=== PATIENT | female | born 1990 | race Caucasian/White ===

== ENCOUNTER 2017-01-21 09:27 | Inpatient (IN) | payer OTHER ==
[2017-01-21 09:33] VITALS: BMI 50.9
[2017-01-21] MEDS ORDERED: ONDANSETRON 4 MG/2 ML VIAL IVPUSH ONE (10:04)
[2017-01-21] MEDS ORDERED: FAMOTIDINE 20 MG/50 ML IVPB 20 MG/50 ML MG IVPB ONE ×3 (10:04→20:05)
--- NOTE | 2017-01-21 10:09 | PDOC ---
History of Present Illness - General History Source: Patient Exam Limitations: No Limitations - History of Present Illness Initial Comments: 01/21/17 11:58 The patient is a 26 year old female, with a significant past medical history of lap band 7yrs ago, who presents to the emergency department with abdominal pain for a few days, worse last night. She notes having severe pain in the epigastric area a/w nausea but no vomiting. She ranks her pain a 8/10 in pain intensity. She denies recent fevers, chills, headache or dizziness. She denies recent dysuria, frequency, urgency or hematuria. She denies recent chest pain or shortness of breath. Pt spoke with Dr. Preciado who advised her to come to the ED. Allergies: NKA Past surgical history: None reported. Social history: Nonsmoker. Denies EtOH use and recreational drug use. Primary Care Physician: <Chico Walter - Last Filed: 01/21/17 11:58> <Nicole Savage - Last Filed: 01/21/17 12:06> - General Chief Complaint: Pain Stated Complaint: ABD PAIN Time Seen by Provider: 01/21/17 09:37 Past History <Chico Walter - Last Filed: 01/21/17 11:58> - Past Medical History COPD: No GI Disorders: (LAP BAND) Other medical history: OBESITY - Surgical History Abdominal Surgery: Yes (LAP BAND) - Suicide/Smoking/Psychosocial Hx Smoking History: Current every day smoker Number of Cigarettes Smoked Daily: 3 Information on smoking cessation initiated: Yes 'Breaking Loose' booklet given: 01/21/17 Hx Alcohol Use: No Drug/Substance Use Hx: No Substance Use Type: None <Nicole Savage - Last Filed: 01/21/17 12:06> - Past Medical History Allergies/Adverse Reactions: Allergies Allergy/AdvReac Type Severity Reaction Status Date / Time No Known Allergies Allergy Verified 01/21/17 09:33 Home Medications: Ambulatory Orders NK [No Known Home Medication] 01/21/17 Review of Systems - Review of Systems Able to Perform ROS?: Yes Comments:: 01/21/17 11:58 GENERAL/CONSTITUTIONAL: No fever or chills. No weakness. HEAD, EYES, EARS, NOSE AND THROAT: No change in vision. No ear pain or discharge. No sore throat. GASTROINTESTINAL: +abdominal pain, nausea, no vomiting No diarrhea or constipation. GENITOURINARY: No dysuria, frequency, or change in urination. CARDIOVASCULAR: No chest pain or shortness of breath. RESPIRATORY: No cough, wheezing, or hemoptysis. MUSCULOSKELETAL: No joint or muscle swelling or pain. No neck or back pain. SKIN: No rash NEUROLOGIC: No headache, vertigo, loss of consciousness, or change in strength/ sensation. ENDOCRINE: No increased thirst. No abnormal weight change. HEMATOLOGIC/LYMPHATIC: No anemia, easy bleeding, or history of blood clots. ALLERGIC/IMMUNOLOGIC: No hives or skin allergy. <Chico Walter - Last Filed: 01/21/17 11:58> *Physical Exam - Vital Signs Last Vital Signs Temp Pulse Resp BP Pulse Ox 97.7 F 79 18 138/92 100 01/21/17 09:28 01/21/17 09:28 01/21/17 09:28 01/21/17 09:28 01/21/17 09:28 - Physical Exam Comments: 01/21/17 11:58 GENERAL: Awake, alert, and fully oriented, in no acute distress. HEAD: No signs of trauma EYES: PERRLA, EOMI, sclera anicteric, conjunctiva clear ENT: Auricles normal inspection, hearing grossly normal, nares patent, oropharynx clear without exudates. Moist mucosa NECK: Normal ROM, supple, no lymphadenopathy, JVD, or masses LUNGS: Breath sounds equal, clear to auscultation bilaterally. No wheezes, and no crackles HEART: Regular rate and rhythm, normal S1 and S2, no murmurs, rubs or gallops ABDOMEN: Epigastric tenderness to palpation with guarding. Soft. No rebound. No masses EXTREMITIES: Normal range of motion, no edema. No clubbing or cyanosis. No cords , erythema, or tenderness BACK: No midline spinal tenderness in cervical/thoracic/lumbar region NEUROLOGICAL: Normal speech, cranial nerves intact, negative pronator drift, 5/ 5 strength in all 4 extremities, normal sensation to light touch in all 4 extremities, normal cerebellar exam, normal gait, normal reflexes and tone SKIN: Warm, Dry, normal turgor, no rashes or lesions noted <Chico Walter - Last Filed: 01/21/17 11:58> - Vital Signs Last Vital Signs Temp Pulse Resp BP Pulse Ox 97.7 F 79 18 138/92 100 01/21/17 09:28 01/21/17 09:28 01/21/17 09:28 01/21/17 09:28 01/21/17 09:28 <Nicole Savage - Last Filed: 01/21/17 12:06> Heart Score/ECG Review #1 01/21/17 12:06 Twelve-lead EKG was performed and reviewed by me. Normal sinus rhythm, rate 66. + Sinus arrhythmia. No ST elevations. <Nicole Savage - Last Filed: 01/21/17 12:06> ED Treatment Course - LABORATORY CBC & Chemistry Diagram: 01/21/17 10:30 01/21/17 10:30 - ADDITIONAL ORDERS Additional order review: Laboratory Results 01/21/17 10:00 Urine Color Yellow Urine Appearance Slcloudy Urine pH 5.0 Ur Specific [place] 1.021 Urine Protein Negative Urine Glucose (UA) Negative Urine Ketones Negative Urine Blood 2+ H Urine Nitrite Negative Urine Bilirubin Negative Urine Urobilinogen Negative Urine HCG, Qual Negative 01/21/17 10:30 RBC 4.24 MCV 86.6 MCHC 33.5 RDW 14.4 MPV 8.3 Neutrophils % 59.6 Lymphocytes % 26.4 Monocytes % 7.1 Eosinophils % 6.4 H Basophils % 0.5 - Medications Given in the ED: ED Medications Discontinued Medications Generic Name Dose Route Start Last Admin Trade Name Freq PRN Reason Stop Dose Admin Famotidine/Sodium Chloride 20 mg in 50 mls @ 100 mls/hr 01/21/17 10:04 10:47 Pepcid 20 Mg Premixed Ivpb - IVPB 01/21/17 10:33 100 mls/hr ONCE ONE Administration Ondansetron HCl 4 mg 01/21/17 10:04 01/21/17 10:47 Zofran Injection IVPUSH 01/21/17 10:05 4 mg ONCE ONE Administration <Chico Walter - Last Filed: 01/21/17 11:58> - LABORATORY CBC & Chemistry Diagram: 01/21/17 10:30 01/21/17 10:30 <Nicole Savage - Last Filed: 01/21/17 12:06> Medical Decision Making - Medical Decision Making 01/21/17 10:05 26-year-old female with a history of LAP-BAND surgery presents with 3 days of epigastric abdominal pain that became worse last night. The patient called her surgeon Dr. Preciado who recommended she presents to the emergency department. Vitals are within normal limits. Exam with epigastric tenderness to palpation. Concern for LAP-BAND migration versus erosion vs infection. Plan: -NPO -UPT -labs -pain control/antiemetics -imaging as per Dr. Preciado 01/21/17 10:[address] Preciado, the patient's will be placed on the OR schedule for lap band removal later today. Patient is NPO, maintenance fluids ordered. Patient has been admitted to Dr. Preciado. Case discussed in detail with admitting physician including history, physical exam and ancillary studies. Admitting physician has assumed care for the patient, will follow all pending diagnostics and will complete the evaluation and treatment. <Nicole Savage - Last Filed: 01/21/17 12:06> *DC/Admit/Observation/Transfer - Attestations Scribe Attestion: 01/21/17 10:56 Documentation prepared by Chico Walter, acting as biomedical engineering internship for Nicole Savage MD. <Chico Walter - Last Filed: 01/21/17 11:58> - Discharge Dispostion Admit: Yes - Attestations Physician Attestion: 01/21/17 10:42 I, Dr. Nicole Savage MD, attest that this document has been prepared under my direction and personally reviewed by me in its entirety. I further attest, that it accurately reflects all work, treatment, procedures and medical decision -making performed by me. <Nicole Savage - Last Filed: 01/21/17 12:06> Diagnosis at time of Disposition: Abdominal pain - Discharge Dispostion Condition at time of disposition: Stable
[2017-01-21 10:23] LABS: URINE APPEARANCE SLCLOUDY; URINE BILIRUBIN NEGATIVE (NEGATIVE); URINE BLOOD 2+ (NEGATIVE); URINE COLOR YELLOW; URINE GLUCOSE (UA) NEGATIVE (NEGATIVE); URINE KETONE NEGATIVE (NEGATIVE); URINE NITRITE NEGATIVE (NEGATIVE); URINE PROTEIN NEGATIVE (NEGATIVE); URINE UROBILINOGEN NEGATIVE mg/dL (0.2-1.0)
[2017-01-21 10:35] LABS: BASOPHIL 0.5 % (0-2.0); EOSINOPHIL 6.4 % (0-4.5); MCHC 33.5 g/dl (32.0-36.0); MEAN CELL VOLUME 86.6 fl (80-96); MEAN PLT VOLUME 8.3 fl (7.5-11.1); NEUTROPHILS 59.6 % (42.8-82.8); PLATELET COUNT 263 K/MM3 (134-434); RDW 14.4 % (11.6-15.6); WHITE BLOOD COUNT 8.2 K/mm3 (4.0-10.0)
[2017-01-21] MEDS ORDERED: ONDANSETRON 4 MG/2 ML VIAL ONE (10:36)
[2017-01-21] MEDS ORDERED: SODIUM CHLORIDE 1,000 ML IV SCH ×2 (10:45→13:00)
[2017-01-21 11:03] LABS: URINE BACTERIA RARE /hpf (NONE SEEN); URINE MUCUS RARE; URINE RBC 2 /hpf (0-3); URINE WBC 1 /hpf (3-5)
[2017-01-21 11:11] LABS: ALBUMIN 3.1 g/dl (3.4-5.0); ALK PHOS 113 U/L (45-117); ANION GAP 4 (8-16); BILIRUBIN,TOTAL 0.4 mg/dL (0.2-1.0); CALCIUM 8.1 mg/dL (8.5-10.1); CO2 27 mmol/L (21-32); CREATININE 0.8 mg/dL (0.55-1.02); GLUCOSE,RANDOM 87 mg/dL (74-106); SGOT/AST 17 U/L (15-37); SGPT/ALT 28 U/L (12-78); TOT PROT 6.8 g/dl (6.4-8.2)
[2017-01-21 11:17] LABS: INR 1.1 (0.82-1.09); PROTHROMBIN TIME (PATIENT) 12.4 SEC (9.98-11.88)
[2017-01-21] MEDS ORDERED: HYDROmorphone HCL CARPU-JECT 1 MG/1 ML DISP.SYRIN IVPB PRN (12:56)
[2017-01-21] MEDS ORDERED: ONDANSETRON 4 MG/2 ML VIAL IVPUSH PRN (12:56)
--- NOTE | 2017-01-21 12:56 | HP ---
Admitting History and Physical - Admission Chief Complaint: Dysphagia, epigastric pain, reflux History Source: Patient Limitations to Obtaining History: No Limitations - Past Medical History Gastrointestinal: Yes: Other (Morbid obesity) - Past Surgical History Past Surgical History: Yes: Bariatric Surgery (Gastric band) - Smoking History Smoking history: Current every day smoker Aproximately how many cigarettes per day: 3 - Alcohol/Substance Use Hx Alcohol Use: No Home Medications - Allergies Allergies/Adverse Reactions: Allergies Allergy/AdvReac Type Severity Reaction Status Date / Time No Known Allergies Allergy Verified 01/21/17 09:33 - Home Medications Home Medications: Ambulatory Orders NK [No Known Home Medication] 01/21/17 Family Disease History - Family Disease History Family History: Unremarkable Review of Systems - Review of Systems Constitutional: denies: Chills Neck: reports: No Symptoms Cardiovascular: denies: Chest Pain Respiratory: denies: Cough Gastrointestinal: reports: Abdominal Pain, Dysphagia Neurological: denies: Change in LOC Pain Intensity: 3 Physical Examination Vital Signs: Vital Signs Temperature 97.7 F 01/21/17 09:28 Pulse Rate 79 01/21/17 09:28 Respiratory Rate 18 01/21/17 09:28 Blood Pressure 138/92 01/21/17 09:28 O2 Sat by Pulse Oximetry (%) 100 01/21/17 09:28 Constitutional: Yes: Calm HENT: Yes: WNL Neck: Yes: Supple Cardiovascular: Yes: Regular Rate and Rhythm Respiratory: Yes: CTA Bilaterally Gastrointestinal: Yes: Soft, Abdomen, Obese, Tenderness, Epigastrium. No: Tenderness, Rebound Neurological: Yes: Alert, Oriented Labs: CBC, BMP 01/21/17 10:30 01/21/17 10:30 Problem List - Problems (1) Gastric band malfunction Code(s): K95.09 - OTHER COMPLICATIONS OF GASTRIC BAND PROCEDURE (2) Dysphagia Code(s): R13.10 - DYSPHAGIA, UNSPECIFIED Qualifiers: Dysphagia type: unspecified Qualified Code(s): R13.10 - Dysphagia, unspecified (3) GERD (gastroesophageal reflux disease) Code(s): K21.9 - GASTRO-ESOPHAGEAL REFLUX DISEASE WITHOUT ESOPHAGITIS Qualifiers: Esophagitis presence: esophagitis presence not specified Qualified Code(s) : K21.9 - Gastro-esophageal reflux disease without esophagitis (4) Epigastric abdominal pain Code(s): R10.13 - EPIGASTRIC PAIN (5) Abdominal pain Code(s): R10.9 - UNSPECIFIED ABDOMINAL PAIN Assessment/Plan 26 female with dysphagia, pain and reflux due to malfunctioning gastric band For laparoscopic gastric band removal today
[2017-01-21 17:07] LABS: URINE LEUK ESTERASE Negative (NEGATIVE)
[2017-01-21] MEDS ORDERED: ROCURONIUM BROMIDE 50 MG/5 ML VIAL ONE (17:22)
[2017-01-21] MEDS ORDERED: MIDAZOLAM HCL 2 MG/2 ML SINGLE DOSE VIAL ONE (17:23)
[2017-01-21] MEDS ORDERED: FLU VACCINE QUAD 60 MCG/0.5 ML (MDV 17-18) IM ONE (17:36)
[2017-01-21] MEDS ORDERED: PNEUMOC 13-VAL CONJ-DIP CRM/PF 0.5 ML DISP.SYRIN IM ONE (17:39)
[2017-01-21] MEDS ORDERED: ceFAZolin SODIUM 1 GM VIAL ONE (17:44)
[2017-01-21] MEDS ORDERED: PNEUMOCOCCAL 23 VACCINE 0.5 ML VIAL IM ONE (17:45)
[2017-01-21] MEDS ORDERED: ceFAZolin SODIUM 1 GM VIAL IVPB ONE (17:45)
[2017-01-21] MEDS ORDERED: DEXAMETHASONE SOD PHOSPHATE 4 MG/1 ML VIAL ONE (17:52)
[2017-01-21] MEDS ORDERED: NEOSTIGMINE METHYLSULFATE 0.5 MG/ML - 10 ML MDV ONE (18:43)
[2017-01-21] MEDS ORDERED: GLYCOPYRROLATE 0.2 MG/1 ML VIAL ONE (18:43)
[2017-01-21] MEDS ORDERED: BUPIVACAINE HCL/PF 0.5% (5MG/ML) 10 ML VIAL IJ ONE (19:06)
--- NOTE | 2017-01-21 19:16 | OP ---
Operative Note - Note: Operative Date: 01/21/17 Pre-Operative Diagnosis: Malfunctioning band. Reflux. Dysphagia. Epigastric pain Operation: Laparoscopic removal of gastric band, port and components. Laparoscopic capsulotomy Post-Operative Diagnosis: Same as Pre-op Surgeon: Kostas Preciado Food Stylist: Jef Olivas Anesthesia: General Specimens Removed: Gastric band, port and components Estimated Blood Loss (mls): 30 Operative Report Dictated: Yes
[2017-01-21] MEDS ORDERED: ENOXAPARIN NA (PORCINE) 40 MG/0.4 ML DISP.SYRIN SQ ONE ×2 (19:18→22:00)
[2017-01-21] MEDS ORDERED: METOCLOPRAMIDE HCL INJECTION 10 MG/2 ML VIAL IVPUSH ONE (19:24)
[2017-01-21] MEDS ORDERED: oxyCODONE HCL 5 MG TABLET PO PRN (19:24)
[2017-01-21] MEDS ORDERED: ACETAMINOPHEN 1000 MG/100 ML VIAL (NON FORMULARY) IVPB ONE (19:25)
[2017-01-21] MEDS ORDERED: LACTATED RINGERS SOLUTION 1,000 ML IV SCH (19:30)
[2017-01-21] MEDS ORDERED: ACETAMINOPHEN INJECTION 100 ML IVPB ONE (19:34)
[2017-01-21] MEDS ORDERED: FAMOTIDINE 20 MG PREMIXED IVPB IVPB ONE (19:50)
[2017-01-21] MEDS ORDERED: FAMOTIDINE 20 MG/50 ML IVPB 20 MG/50 ML MG IVPB SCH (22:00)
[2017-01-22 00:20] VITALS: BP 110/66; PULSE 82; TEMP 97.7
--- NOTE | 2017-01-22 09:49 | OP ---
DATE OF OPERATION: 01/21/2017 SURGEON: Sis Preciado MD CHAIRMAN EMERITUS: Jef Olivas MD PREOPERATIVE DIAGNOSES: Dysphagia, epigastric abdominal pain, reflux, and malfunctioning gastric band. POSTOPERATIVE DIAGNOSES: Dysphagia, epigastric abdominal pain, reflux, and malfunctioning gastric band. PROCEDURE: Laparoscopic removal of gastric band, port, and components, and laparoscopic capsulotomy. SPECIMEN: Gastric band port and components. ESTIMATED BLOOD LOSS: 30 mL. DRAINS: None. ANESTHESIA: GET. REASON FOR PROCEDURE: This is a 26-year-old female who presented to the emergency room with dysphagia, epigastric pain, and reflux. She has had a gastric band placed in the past and is having problems with it. Because of the malfunctioning gastric band, patient agreed that it needed to be removed. The risks and benefits of the laparoscopic possible open gastric band removal with port and components were explained. These included bleeding, infection, hernia, [place], DVT, PE, injury to surrounding structures including the esophagus, stomach, spleen, bowel, duodenum, vessel injury, nerve injury, esophageal leak, gastric leak, persistent obstruction, persistent dysphagia, persistent reflux, and some other complications. She understood and signed informed consent. DESCRIPTION OF PROCEDURE: Patient was placed supine on the operating table. She underwent general endotracheal intubation. A footboard was placed, and the legs were secured. The arms were brought out to 90 degrees and secured with a Kerlix dressing. The abdomen was prepped and draped in the usual sterile fashion. Time-out was performed. An OG-tube was placed by Anesthesia. An incision was made superior and to the left of the umbilicus, and a Veress needle was inserted, and pneumoperitoneum was established. The Veress needle was removed, and 5-mm optical trocar was placed under direct visualization with the laparoscope. The stomach was fully inspected, and the epigastric band tubing was noted. A 5-mm trocar was placed in the left subcostal region, and two further 5-mm trocars were placed, one in the right subcostal region, one superior and to the right of the umbilicus. The initial 5-mm trocar superior and to the left of the umbilicus was removed and replaced with a 12-mm trocar. A stab wound was made in the subxiphoid area and a Tamra clamp used to dilate the tract. A Aletha liver retractor was inserted. This was secured to the post of the bedside. The patient was placed in steep reverse Trendelenburg position, and the liver retractor was used to retract the liver to the anterior abdominal wall. The gastric band was noted, and hook electrocautery was used to dissect the tissue at the level of the band carefully staying on top of the band. This tissue was dissected laterally to the left and right, freeing up the band. Once the band was freed, the tubing was cut with EndoShears. The band was then opened and removed from its position around the stomach. In order to do this, the band had to be cut in 2 pieces. These were removed, and the pieces were noted to match. At this point, the capsule was inspected. Capsule was grasped and divided. The full capsulotomy was performed freeing up the bottleneck defect on the stomach where the pin had been placed. Hemostasis was noted, and no injury to the surrounding tissues was noted. At this point, the liver retractor was removed under visualization. Pneumoperitoneum was desufflated, and all trocars were removed. The port site was then palpated and was noted to be in the left lower quadrant, and another incision was made. The area at this point was dissected down to the level of the port, which was completely circumferentially dissected, and the port with its attached tubing was removed. The 2 ports of the tubing were noted to match, as well. Hemostasis was achieved at this area. Then, 3-0 Vicryl was used to close deep subcutaneous tissue at this site. All skin incisions were closed with 4-0 Biosyn, and Marcaine was injected at all incisions. Sterile dressings were applied. The patient tolerated this procedure well and was transferred to the recovery room in stable condition. SIS PRECIADO M.D. [id number]
--- NOTE | 2017-01-22 10:08 | EKG ---
Test Reason : Blood Pressure : / mmHG Vent. Rate : 066 BPM Atrial Rate : 066 BPM P-R Int : 144 ms QRS Dur : 088 ms QT Int : 416 ms P-R-T Axes : 021 -22 013 degrees QTc Int : 436 ms POOR DATA QUALITY, INTERPRETATION MAY BE ADVERSELY AFFECTED NORMAL SINUS RHYTHM WITH SINUS ARRHYTHMIA POOR R WAVE PROGRESSION WHEN COMPARED WITH ECG OF 19-JAN-2017 12:15, NO SIGNIFICANT CHANGE WAS FOUND Confirmed by ARTURO KARIMI MD ([id number]) on 01/22/2017 10:08:01 AM Referred By: Confirmed By:ARTURO KARIMI MD
--- NOTE | 2017-01-25 11:12 | PATH ---
Surgical Pathology Report Patient Name: HIEU STALLWORTH [facility]. Rec. #: [id number] /Age/Gender: 1990 (Age: 26) / F Account: [id number] Location: [address] [place] [address] Taken: 01/21/2017 Received: 01/22/2017 Reported: 01/25/2017 Physicians: Kostas Preciado M.D. Specimen(s) Received REMOVED GASTRIC BAND, PORT AND COMPONENTS Clinical History Preoperative diagnosis: Abdominal pain, dysphagia, reflux, malfunctioning gastric band Postoperative diagnosis: Same Final Diagnosis ASIC ENGINEER, REMOVAL: ASIC ENGINEER CONSISTENT WITH GASTRIC BAND AND PORT (GROSS ONLY). Electronically Signed Spencer Abad M.D. Gross Description Received fresh labeled "removed gastric band," is a 4 cm in diameter gastric band. Also received within the same container is a 42.5 cm in length portion of white tubing. There is a 2.5 cm in diameter x 1.2 cm in depth white, circular device, consistent with a port also within the same container. The port displays an 18 cm in length portion of tubing extending from one aspect. No soft tissue is present. No sections are submitted, gross only. /01/22/2017 saudi01/22/2017
== END 2017-01-21 23:00 | disposition home or self-care (01) | DRG 220 ==
LOC: JER 09:27 → JERBED 10:43 → J5S 16:39
PROVIDERS: ADMIT Surgery; ATTEND Surgery
PROC: 0D764ZZ Dilation of Stomach, Percutaneous Endoscopic Approach (ICD-10-PCS; 2017-01-21)
PROC: 0DP Gastrointestinal System, Removal (ICD-10-PCS; principal; 2017-01-21 16:15)
DX: K95.09 Other complications of gastric band procedure (principal); Z68.43 Body mass index [BMI] 50.0-59.9, adult; E66.01 Morbid (severe) obesity due to excess calories; K21.9 Gastro-esophageal reflux disease without esophagitis; R13.10 Dysphagia, unspecified; Y84.8 Other medical procedures as the cause of abnormal reaction of the patient, or of later complication, without mention of misadventure at the time of the procedure; F17.210 Nicotine dependence, cigarettes, uncomplicated
CPT/HCPCS: 36415; 80053; 81003; 81015; 83605; 83690; 83735; 84703; 85025; 85610; 85730; 86850; 86900; 86901; 88300-TC; 93005; 93010; 94760; 99284-25

== ENCOUNTER 2017-03-25 06:52 | Inpatient (IN) | payer OTHER ==
[2017-03-23 15:00] VITALS: BMI 50.1
[~2017-03-25 06:52] MED LIST: BUPIVACAINE HCL/PF 0.5% (5MG/ML) 10 ML VIAL IJ ONE
[2017-03-25] MEDS ORDERED: DEXAMETHASONE SOD PHOSPHATE 4 MG/1 ML VIAL ONE (07:04)
[2017-03-25] MEDS ORDERED: LIDOCAINE HCL 2% 100 MG/5 ML DISP.SYRIN ONE (07:04)
[2017-03-25] MEDS ORDERED: fentaNYL CITRATE 250 MCG/5 ML VIAL ONE (07:04)
[2017-03-25] MEDS ORDERED: PROPOFOL 20 ML ONE ×2 (07:04)
[2017-03-25] MEDS ORDERED: ROCURONIUM BROMIDE 50 MG/5 ML VIAL ONE ×2 (07:05→08:56)
[2017-03-25] MEDS ORDERED: SUCCINYLCHOLINE CHLORIDE 200 MG/10 ML VIAL ONE (07:05)
[2017-03-25] MEDS ORDERED: MIDAZOLAM HCL 2 MG/2 ML SINGLE DOSE VIAL ONE (07:05)
--- NOTE | 2017-03-25 08:14 | HP ---
History & Physical Update - History History: No Change - Physical Physical: No Change - Assessment Assessment: No Change (Laparoscopic possible open vertical sleeve gastrectomy, possible liver biopsy, EGD)
[2017-03-25] MEDS ORDERED: ceFAZolin SODIUM 1 GM VIAL IVPB ONE (08:16)
[2017-03-25] MEDS ORDERED: ceFAZolin SODIUM 1 GM VIAL ONE (08:30)
[2017-03-25] MEDS ORDERED: GLYCOPYRROLATE 0.2 MG/1 ML VIAL ONE ×2 (09:34→09:35)
[2017-03-25] MEDS ORDERED: NEOSTIGMINE METHYLSULFATE 0.5 MG/ML - 10 ML MDV ONE (09:35)
[2017-03-25] MEDS ORDERED: PROMETHAZINE HCL 25 MG/1 ML VIAL IVPUSH PRN (09:41)
[2017-03-25] MEDS ORDERED: HYDROmorphone HCL CARPU-JECT 1 MG/1 ML DISP.SYRIN IVPUSH PRN (09:41)
[2017-03-25] MEDS ORDERED: METOCLOPRAMIDE HCL INJECTION 10 MG/2 ML VIAL IVPUSH SCH (10:00)
[2017-03-25] MEDS ORDERED: FAMOTIDINE 20 MG/50 ML IVPB 20 MG/50 ML MG IVPB SCH (10:00)
[2017-03-25] MEDS ORDERED: ACETAMINOPHEN 1000 MG/100 ML VIAL (NON FORMULARY) IVPB SCH (10:00)
[2017-03-25] MEDS ORDERED: HYDROmorphone HCL CARPU-JECT 1 MG/1 ML DISP.SYRIN IVPB PRN (10:00)
--- NOTE | 2017-03-25 10:03 | OP ---
Operative Note - Note: Operative Date: 03/25/17 Pre-Operative Diagnosis: Morbid obesity Operation: Laparoscopic vertical sleeve gastrectomy, laparoscopic wedge liver biopsy, EGD Post-Operative Diagnosis: Other (Morbid obesity, hepatomegaly) Surgeon: Kostas Preciado Tool Setter Apprentice: Jef Olivas Anesthesia: General Specimens Removed: Greater curvature of stomcah, liver biopsy Estimated Blood Loss (mls): 30 Drains & Tubes with Location: 36 F Bougie Operative Report Dictated: Yes
[2017-03-25 10:42] LABS: HEMATOCRIT 35.7 % (32.4-45.2); HEMOGLOBIN 11.7 GM/dL (10.7-15.3); MCH 27.9 pg (25.7-33.7); MCHC 32.7 g/dl (32.0-36.0); MEAN CELL VOLUME 85.3 fl (80-96); MEAN PLT VOLUME 8.2 fl (7.5-11.1); PLATELET COUNT 298 K/MM3 (134-434); RBC 4.19 M/mm3 (3.60-5.2); RDW 14.6 % (11.6-15.6); WHITE BLOOD COUNT 7.7 K/mm3 (4.0-10.0)
[2017-03-25] MEDS: SODIUM CHLORIDE 1,000 ML IV SCH (10:45)
[2017-03-25] MEDS ORDERED: ACETAMINOPHEN INJECTION 100 ML IVPB ONE (10:53)
[2017-03-25] MEDS ORDERED: METOCLOPRAMIDE HCL INJECTION 10 MG/2 ML VIAL ONE (10:53)
--- NOTE | 2017-03-25 10:53 | SPEC ---
DATE OF OPERATION: 03/25/2017 SURGEON: Kostas Preciado MD PROFESSOR OF MEDICINE: Jef Olivas MD PREOPERATIVE DIAGNOSIS: Morbid obesity, body mass index of 50.2. POSTOPERATIVE DIAGNOSES: 1. Morbid obesity, body mass index of 50.2. 2. Hepatomegaly. PROCEDURE: 1. Laparoscopic vertical sleeve gastrectomy. 2. Laparoscopic wedge liver biopsy. 3. Esophagogastroduodenoscopy. ESTIMATED BLOOD LOSS: 30 mL SPECIMEN: Greater curvature of the stomach and left lobe wedge liver biopsy. BOUGIE: 36-Setswana. ANESTHESIA: GET. REASON FOR THE PROCEDURE: This is a 26-year-old female who presents for weight loss options. After describing different options, she decided to proceed with a laparoscopic, possible open vertical sleeve gastrectomy, possible liver biopsy, and upper endoscopy. The risks and benefits of the procedure were explained. RISKS AND BENEFITS: After describing the different options for weight loss management, the patient decided to proceed with a laparoscopic, possible open vertical sleeve gastrectomy. The patient was seen by the respective subspecialties and cleared for surgery. The risks and benefits of the procedure were explained. These included bleeding, infection, hernia, [place], DVT, PE, injury to surrounding structures including the liver, colon, bowel, spleen, esophagus, vessel injury, nerve injury, weight regain, gastric leak, staple line leak, sleeve leak, obstruction, vitamin deficiency, hair loss and as some of the possible complications. The patient understood and signed informed consent. DESCRIPTION OF PROCEDURE: The patient was placed supine on the operating room table. The patient underwent general endotracheal intubation. A Grossman catheter was inserted. The arms were brought out at 90 degrees and secured. A footboard was placed and the legs were secured laterally with padding. The abdomen was prepped and draped in the usual sterile fashion. A timeout was performed. An incision was made in the left upper quadrant and a Veress needle inserted. Pneumoperitoneum was established. Subsequently, the Veress needle was removed and a 12-mm trocar was placed. The laparoscopic camera was then inserted and inspection of the abdominal cavity was performed. An incision was then made in the supraumbilical area and a 15-mm trocar was placed under direct visualization. A 5-mm trocar was then placed in the right upper quadrant and a 5-mm trocar was placed below the left subcostal margin. A stab wound was made in the subxiphoid area and a Tamra clamp inserted and removed to dilate the tract. A Aletha liver retractor was inserted. The post was secured at the bedside by the nursing staff. The patient was placed in steep reverse Trendelenburg position and the Aletha liver retractor was used to secure the liver towards the anterior abdominal wall. The pylorus was identified and 6 cm proximal to it, the lesser sac was entered using the LigaSure device. All lateral attachments to the greater curvature of the stomach, including the short gastric vessels, were ligated using the LigaSure device toward the gastrosplenic and gastrophrenic ligaments. Once this was done in its entirety, it was confirmed that all tubes within the nasal or oropharyngeal cavity, including a temperature probe, was removed by Anesthesia. The bougie was then inserted by Anesthesia. Transection of the stomach was then begun staying adjacent to the bougie but away from the angularis. Transection of the stomach was performed near the portion of the stomach where the lesser sac was entered. Two laparoscopic Endo-RADU black dipika were used at this location. Laparoscopic Endo RADU purple staple loads were then used for the remainder of the transection until the greater curvature of the stomach was fully transected. This was done staying close to the bougie. Care was taken to stay away from the angle of His cephalad. The staple line was then inspected. Hemostasis was identified. A leak test was then performed. It was clamped distally to the staple line. Irrigation solution was placed in the left upper quadrant and air was insufflated by Anesthesia into the sleeve. No leaks were identified. No obstruction was identified. This was done through the entirety of the staple line. At this point, the irrigation solution was suctioned and again, hemostasis was noted. A wedge liver biopsy was then performed. The left lobe of the liver was identified and a portion of the edge was grasped. Using electrocautery, a wedge of the liver was excised. This was removed and sent off the field as specimen. Hemostasis at the site of the wedge liver biopsy was attained using electrocautery. The 15-mm supraumbilical trocar was then removed and the greater curvature specimen removed from the site using a sponge stick ipke. The specimen was inspected and a Veress needle inserted. The specimen insufflated adequately and no leak was identified. The staple line was noted to be intact. A Jus-Tersea device was then used to temporarily close the fascia with a 0 Vicryl suture at the site. The 15-mm trocar was then reinserted and the 12-mm trocar in the left upper quadrant was removed. The fascia at this site was then closed using the Jus-Teresa device with a 0 Vicryl suture. Again, hemostasis was noted. The Aletha liver retractor was then removed under direct visualization. Pneumoperitoneum was desufflated and the fascial sutures were secured. Hemostasis was noted at all incision sites and Marcaine was injected at all incision sites. All incision sites were closed using 4-0 Biosyn. Sterile dressings were applied. The patient tolerated the procedure well and was transferred to the recovery room in stable condition with the Grossman catheter intact. The patient was transferred to telemetry for further monitoring. In addition, at the end of the procedure, an upper endoscopy was performed, and then, the scope was inserted into the patient's mouth. The entirety of the esophagus, GE junction, gastric pouch, and staple line was inspected. The staple line was noted to be intact. No leak or obstruction was noted. Hemostasis was noted. The stomach was then decompressed, suctioned, and the endoscope fully removed. The patient tolerated the procedure well and was transferred to the recovery room in stable condition. Karen MARX/[id number]
[2017-03-25] MEDS: FAMOTIDINE 20 MG/50 ML IVPB 20 MG/50 ML MG IVPB SCH ×2 (11:00→21:27)
[2017-03-25] MEDS ORDERED: FAMOTIDINE 20 MG PREMIXED IVPB IVPB ONE (11:00)
[2017-03-25] MEDS ORDERED: FAMOTIDINE 20 MG/50 ML IVPB 20 MG/50 ML MG IVPB ONE (11:03)
[2017-03-25 11:09] LABS: ALBUMIN 3.3 g/dl (3.4-5.0); ALK PHOS 115 U/L (45-117); ANION GAP 6 (8-16); BLOOD UREA NITROGEN 13 mg/dL (7-18); CHLORIDE 109 mmol/L (98-107); CO2 25 mmol/L (21-32); GLUCOSE,RANDOM 115 mg/dL (74-106); POTASSIUM 4.1 mmol/L (3.5-5.1); SODIUM 140 mmol/L (136-145)
[2017-03-25 11:12] LABS: BILIRUBIN,TOTAL 0.3 mg/dL (0.2-1.0); CREATININE 0.9 mg/dL (0.55-1.02); SGOT/AST 22 U/L (15-37); SGPT/ALT 29 U/L (12-78); TOT PROT 6.9 g/dl (6.4-8.2)
[2017-03-25] MEDS: ACETAMINOPHEN 1000 MG/100 ML VIAL (NON FORMULARY) IVPB SCH ×3 (16:17→22:31)
[2017-03-25] MEDS: METOCLOPRAMIDE HCL INJECTION 10 MG/2 ML VIAL IVPUSH SCH ×3 (16:18→23:30)
[2017-03-25] MEDS: ONDANSETRON 4 MG/2 ML VIAL IVPUSH SCH ×3 (16:22→22:31)
[2017-03-25] MEDS: HYDROmorphone HCL CARPU-JECT 2 MG/1 ML DISP.SYRIN IVPB PRN ×2 (20:06→23:45)
[2017-03-25] MEDS: ENOXAPARIN NA (PORCINE) 40 MG/0.4 ML DISP.SYRIN SQ SCH (21:27)
[2017-03-26] MEDS: ONDANSETRON 4 MG/2 ML VIAL IVPUSH SCH ×7 (02:52→21:23)
[2017-03-26] MEDS: ACETAMINOPHEN 1000 MG/100 ML VIAL (NON FORMULARY) IVPB SCH (06:21)
[2017-03-26] MEDS: METOCLOPRAMIDE HCL INJECTION 10 MG/2 ML VIAL IVPUSH SCH ×4 (06:22→23:07)
[2017-03-26 07:09] LABS: HEMATOCRIT 33.6 % (32.4-45.2); HEMOGLOBIN 10.8 GM/dL (10.7-15.3); MCH 27.5 pg (25.7-33.7); MCHC 32.3 g/dl (32.0-36.0); MEAN CELL VOLUME 85.3 fl (80-96); MEAN PLT VOLUME 8.9 fl (7.5-11.1); PLATELET COUNT 302 K/MM3 (134-434); RBC 3.93 M/mm3 (3.60-5.2); RDW 14.3 % (11.6-15.6); WHITE BLOOD COUNT 11.2 K/mm3 (4.0-10.0)
[2017-03-26 07:17] LABS: CHLORIDE 109 mmol/L (98-107); POTASSIUM 4.1 mmol/L (3.5-5.1); SODIUM 141 mmol/L (136-145)
[2017-03-26 07:22] LABS: ALBUMIN 2.8 g/dl (3.4-5.0); ALK PHOS 98 U/L (45-117); ANION GAP 8 (8-16); BILIRUBIN,TOTAL 0.4 mg/dL (0.2-1.0); BLOOD UREA NITROGEN 9 mg/dL (7-18); CALCIUM 7.9 mg/dL (8.5-10.1); CO2 24 mmol/L (21-32); CREATININE 0.7 mg/dL (0.55-1.02); GLUCOSE,RANDOM 98 mg/dL (74-106); SGOT/AST 21 U/L (15-37); SGPT/ALT 27 U/L (12-78); TOT PROT 6.3 g/dl (6.4-8.2)
[2017-03-26] MEDS: FAMOTIDINE 20 MG/50 ML IVPB 20 MG/50 ML MG IVPB SCH (09:16)
[2017-03-26] MEDS: SODIUM CHLORIDE 1,000 ML IV SCH ×2 (09:17→11:24)
[2017-03-26] MEDS: ENOXAPARIN NA (PORCINE) 40 MG/0.4 ML DISP.SYRIN SQ SCH ×2 (09:17→21:22)
--- NOTE | 2017-03-26 09:49 | PN ---
Progress Note (short form) - Note Progress Note: Anesthesia postop note 26 y/o F s/p GA for laparoscopic gastric sleeve POD#1, vss, aaox3, no complaints. No anesthesia complications.
[2017-03-26] MEDS: ACETAMINOPHEN 325 MG TABLET (FP) PO PRN ×2 (14:57→20:25)
[2017-03-26] MEDS: oxyCODONE HCL 5 MG TABLET PO PRN ×2 (14:57→20:25)
--- NOTE | 2017-03-26 18:53 | PN ---
Progress Note (short form) - Note Progress Note: POD 1 Pain controlled No nausea Vital Signs Period Temp Pulse Resp BP Sys/Anderson Pulse Ox Last 24 Hr 97.8 F-98.7 F 54-80 18-20 99-115/45-69 97-97 Abd soft CBC, BMP 03/26/17 05:35 03/26/17 05:35 UGI: no leak/obstruction Clears Ambulate Discharge planning
[2017-03-26] MEDS ORDERED: FAMOTIDINE 20 MG/50 ML IVPB 20 MG/50 ML MG IVPB SCH (22:00)
[2017-03-27] MEDS: SODIUM CHLORIDE 1,000 ML IV SCH (01:00)
[2017-03-27] MEDS: ONDANSETRON 4 MG/2 ML VIAL IVPUSH SCH ×2 (02:30→05:33)
[2017-03-27] MEDS: METOCLOPRAMIDE HCL INJECTION 10 MG/2 ML VIAL IVPUSH SCH (05:33)
[2017-03-27] MEDS: ACETAMINOPHEN 325 MG TABLET (FP) PO PRN (05:33)
[2017-03-27] MEDS: oxyCODONE HCL 5 MG TABLET PO PRN (05:34)
[2017-03-27 06:53] VITALS: BP 127/75; PULSE 72; TEMP 98.3
--- NOTE | 2017-03-30 14:35 | PATH ---
Surgical Pathology Report Patient Name: HIEU STALLWORTH [facility]. Rec. #: [id number] /Age/Gender: 1990 (Age: 26) / F Account: [id number] Location: 4 W TELEMETRY U Taken: 03/25/2017 Received: 03/25/2017 Reported: 03/30/2017 Physicians: Kostas Preciado M.D. Specimen(s) Received A: GREATER CURVATURE STOMACH B: LIVER BIOPSY Clinical History Morbid obesity Final Diagnosis A. STOMACH, GREATER CURVATURE, LAPAROSCOPIC VERTICAL SLEEVE GASTRECTOMY.: PORTION OF STOMACH WITH MILD CHRONIC GASTRITIS. IMMUNOHISTOCHEMICAL STAIN FOR H. PYLORI IS NEGATIVE. B. LIVER, BIOPSY: LIVER PARENCHYMA WITH MILD PATCHY STEATOSIS (~10%). NO INCREASE IN IRON AND FIBROSIS ON PERFORMED SPECIAL STAINS (IRON AND TRICHROME). Electronically Signed Nicole Hodge M.D. Gross Description A. Received in formalin, labeled "greater curvature of stomach," is a 130 gram, 16.5 x 3.8 x 3.0 cm. portion of stomach with a stapled margin of resection. The serosa is donaldson-castañeda with minimal attached fat. The mucosa is donaldson- red with normal folds. No mucosal masses are identified. Mini Bar Attendant sections are submitted in one cassette. B. Received in formalin labeled "liver biopsy," are 2 donaldson, irregular portions of soft tissue measuring 1.2 x 0.7 x 0.2 cm and 1.6 x 0.9 x 0.4 cm. The larger portion is bisected and the specimen is entirely submitted in one cassette. /03/25/201703/25/2017
== END 2017-03-27 09:05 | disposition home or self-care (01) | DRG 403 ==
LOC: JSAMEDAYSX 06:52 → EDSTATUS 09:30 → J4W 15:43
PROVIDERS: ADMIT Surgery; ATTEND Surgery
PROC: 0DB64Z3 Excision of Stomach, Percutaneous Endoscopic Approach, Vertical (ICD-10-PCS; principal; 2017-03-25 08:00)
PROC: 0FB24ZX Excision of Left Lobe Liver, Percutaneous Endoscopic Approach, Diagnostic (ICD-10-PCS; 2017-03-25 08:00)
PROC: 0DJ08ZZ Inspection of Upper Intestinal Tract, Via Natural or Artificial Opening Endoscopic (ICD-10-PCS; 2017-03-25 08:00)
DX: E66.01 Morbid (severe) obesity due to excess calories (principal); Z68.43 Body mass index [BMI] 50.0-59.9, adult; R16.0 Hepatomegaly, not elsewhere classified
CPT/HCPCS: 36415; 74241-TC-FY; 80053; 84703; 85027; 86850; 86900; 86901; 88307-TC; 94010; 94760; J0131; J7030